=== PATIENT | female | born 1950 | race Caucasian/White ===

== ENCOUNTER 2021-05-21 23:49 | Emergency (ER) | payer BC ==
[~2021-05-21] VITALS: Ht 170.2 cm; Wt 84.1 kg
[2021-05-22 00:20] VITALS: BP 194/86
[2021-05-22] MEDS ORDERED: PRED20TA PO (00:41)
== END 2021-05-22 00:49 | disposition home or self-care (01) ==
LOC: ER 23:50
DX: H92.02 Otalgia, left ear (principal); Z88.0 Allergy status to penicillin; Z88.2 Allergy status to sulfonamides
CPT/HCPCS: 99283